=== PATIENT | male | born 1945 | race Caucasian/White ===

== ENCOUNTER 2024-08-18 21:17 | Emergency (ER) | payer MEDICARE, OTHER, SELFPAY ==
[2024-08-18 21:31] VITALS: BP 189/97; PULSE 66; RESP 18; TEMP 36.8; O2SAT 97; BMI 31.2
[2024-08-18 22:28] LABS: Add Manual Diff / Slide Review NO; Basophils Absolute Auto 0 /uL (0-100); Basophils Percent Auto 0.3 % (0-2); Eosinophils Absolute Auto 0 /uL (0-450); Eosinophils Percent Auto 0.1 % (2-4); Hematocrit 38.9 % (41-53); Hemoglobin 13.4 g/dL (13.5-17.5); Lymphocytes Absolute Auto 1000 /uL (1100-4500); Lymphocytes Percent Auto 10.5 % (25-40); Mean Corpuscular HGB Conc 34.5 % (30-36); Mean Corpuscular Hemoglobin 31.8 PG (26-34); Mean Corpuscular Volume 92.3 fL (80-100); Monocytes Absolute Auto 400 /uL (0-900); Neutrophils Absolute Auto 7700 /uL (1500-7000); Neutrophils Percent Auto 85.1 % (50-75); Platelet Count 166 X10^3/uL (150-400); Red Blood Cell Count 4.21 X10^6/uL (4.5-5.9); Red Cell Distribution Width 13.4 % (11.6-14.8); White Blood Cell Count 9.1 X10^3/uL (4.5-11.0)
[2024-08-18 22:31] LABS: Urine Volume 10mL (spun)
[2024-08-18 22:32] LABS: Bacteria Urine None Seen; Culture Indicated Urine Cult Not Indicated; RBC Urine 30-100/HPF (0-5/HPF); Squamous Epithelial Cell Urine None Seen (0-5/HPF); WBC Urine None Seen (0-5/HPF)
[2024-08-18 22:38] LABS: Alanine Aminotransferase 26 IU/L (<50); Albumin 4.7 g/dL (3.5-5.0); Albumin Globulin Ratio 1.6 (1.0-2.8); Alkaline Phosphatase 49 U/L (38-126); Aspartate Aminotransferase 35 IU/L (17-59); Bilirubin Total 0.6 mg/dL (0.2-1.3); Blood Urea Nitrogen 17 mg/dL (9-20); Calcium 9.6 mg/dL (8.4-10.2); Carbon Dioxide 24 mmol/L (22-32); Chloride 107 mmol/L (98-107); Estimated Glomerular Filt Rate 51 mL/min (>60); Globulin 2.9 g/dL (1.7-4.1); Glucose 127 mg/dL (70-99); HEMOLYSIS < 15 (0-50); Lipase 382 U/L (23-300); Potassium 4.9 mmol/L (3.4-5.1); Sodium 140 mmol/L (137-145); Total Protein 7.6 g/dL (6.3-8.2)
[2024-08-18 23:34] VITALS: PULSE 89; RESP 17; O2SAT 98
--- NOTE | 2024-08-18 23:52 | ED.ABDPAIN ---
HPI - Abdominal Pain General Chief Complaint: Abdominal Pain Stated Complaint: Abdominal Pain Time Seen by Provider: 08/18/24 23:41 Source: patient Mode of arrival: Ambulatory History of Present Illness HPI narrative: [age] year old gentleman history of CAD 2 stents, prediabetic, dyslipidemia, history of kidney stones, presents with left lower quadrant pain, radiating to left kidney, started earlier tonight. Denies nausea, vomiting, diarrhea, constipation, hematuria, or penile discharge, testicular pain, chest pain, shortness of breath, cough, runny nose, sore throat. Last had a bowel movement earlier today. Other than what is stated 14 point review of system is negative Related Data Previous Rx's Medication Instructions Recorded hydrocodone 5 mg-acetaminophen 325 1 tab PO Q6H PRN pain #20 tabs 08/19/24 mg tablet tamsulosin 0.4 mg capsule (Flomax) 0.4 mg PO DAILY #30 caps 08/19/24 Review of Systems Review of Systems ROS Unobtainable: All systems reviewed & are unremarkable except as noted in HPI and below Patient History Social History Smoking Status: Never smoker Smoking Status: Never smoker Exam Narrative Exam Narrative: GENERAL: [79] year old patient appears stated age. Well-developed patient, in mild distress. HEAD: Atraumatic. Normocephalic. EYES: Pupils equal round and reactive. Extraocular motions intact. No scleral icterus. No injection or drainage. ENT: Nose without bleeding, purulent drainage. Throat without erythema, tonsillar hypertrophy or exudate. Airway patent. NECK: Trachea midline. Non tender CARDIOVASCULAR: Regular rate and rhythm without murmurs, gallops, or rubs. RESPIRATORY: Clear to auscultation. Breath sounds equal bilaterally. No wheezes, rales, or rhonchi. GASTROINTESTINAL: Abdomen soft,LLQ TTP but no r/r/g EXTREMITIES: No edema or joint tenderness. BACK: Nontender without deformity or crepitance. No flank tenderness. NEURO: AOx3. SKIN: No rash or erythema of visible areas Initial Vital Signs Initial Vital Signs: Vital Signs Temperature 98.2 F 08/18/24 21:31 Pulse Rate 66 08/18/24 21:31 Respiratory Rate 18 08/18/24 21:31 Blood Pressure 189/97 H 08/18/24 21:31 Pulse Oximetry 97 08/18/24 21:31 Oxygen Delivery Method Room Air 08/18/24 21:31 Course Orders Ordered: ED Orders 08/18/24 22:04 Urine Microscopic Stat 08/18/24 22:15 EKG-12 Lead Stat 08/18/24 22:18 Complete Blood Count AUTO DIFF Stat Comprehensive Metabolic Panel Stat Lipase Stat 08/18/24 23:52 CT abdomen pelvis w con Stat Ondansetron HCl (Ondansetron 4 Mg/2 Ml Inj) 4 mg IV NOW PRN PRN Reason: Nausea And Vomiting Last Admin: 08/19/24 00:01 Dose: 4 mg Documented By: ELISEO Ondansetron HCl (Ondansetron 4 Mg Odt) 4 mg PO NOW PRN PRN Reason: Nausea And Vomiting Discontinued Medications Lactated Ringer's (Lactated Ringers) 1,000 mls @ 1,000 mls/hr IV BOLUS ONE Stop: 08/19/24 00:54 Last Infusion: 08/19/24 01:10 Dose: Infused Documented By: Admin: 08/19/24 00:00 Dose: 1,000 mls/hr Documented By: ELISEO Morphine Sulfate (Morphine 4 Mg/Ml Inj) 4 mg IV NOW ONE Stop: 08/18/24 23:56 Last Admin: 08/19/24 00:00 Dose: 4 mg Documented By: ELISEO Vital Signs Vital signs: Vital Signs - 8 hr 08/18/24 21:31 08/18/24 23:34 08/19/24 00:00 Temperature 98.2 F Pulse Rate 66 89 85 Respiratory Rate 18 17 20 Blood Pressure 189/97 H Pulse Oximetry 97 98 97 Oxygen Delivery Method Room Air Room Air Room Air 08/19/24 00:08 08/19/24 00:08 08/19/24 00:09 Temperature Pulse Rate 86 Respiratory Rate 24 Blood Pressure 187/87 H 173/84 H Pulse Oximetry 97 Oxygen Delivery Method Room Air 08/19/24 00:09 08/19/24 00:30 08/19/24 00:30 Temperature Pulse Rate 84 86 Respiratory Rate 19 15 Blood Pressure 159/75 H Pulse Oximetry 96 93 Oxygen Delivery Method Room Air Room Air 08/19/24 01:00 08/19/24 01:00 Temperature Pulse Rate 85 Respiratory Rate 17 Blood Pressure 152/70 H Pulse Oximetry 95 Oxygen Delivery Method Room Air MDM - Abdominal Pain Lab Data 08/18/24 22:18 08/18/24 22:18 Labs: Lab Results 08/18/24 08/18/24 Range/Units 22:04 22:18 WBC 9.1 (4.5-11.0) X10^3/uL RBC 4.21 L (4.5-5.9) X10^6/uL Hgb 13.4 L (13.5-17.5) g/dL Hct 38.9 L (41-53) % MCV 92.3 (80-100) fL MCH 31.8 (26-34) PG MCHC 34.5 (30-36) % RDW 13.4 (11.6-14.8) % Plt Count 166 (150-400) X10^3/uL Neut % (Auto) 85.1 H (50-75) % Lymph % (Auto) 10.5 L (25-40) % [place] % (Auto) 4.0 (3-14) % Eos % (Auto) 0.1 L (2-4) % Baso % (Auto) 0.3 (0-2) % Neut # (Auto) 7700 H (2264-3649) /uL Lymph # (Auto) 1000 L (0211-9343) /uL [place] # (Auto) 400 (0-900) /uL Eos # (Auto) 0 (0-450) /uL Baso # (Auto) 0 (0-100) /uL Sodium 140 (137-145) mmol/L Potassium 4.9 (3.4-5.1) mmol/L Chloride 107 (98-107) mmol/L Carbon Dioxide 24 (22-32) mmol/L BUN 17 (9-20) mg/dL Creatinine 1.42 H (0.66-1.25) mg/dL Estimated GFR 51 L (>60) mL/min BUN/Creatinine Ratio 12.0 (6-22) Glucose 127 H (70-99) mg/dL Calcium 9.6 (8.4-10.2) mg/dL Total Bilirubin 0.6 (0.2-1.3) mg/dL AST 35 (17-59) IU/L ALT 26 (<50) IU/L Alkaline Phosphatase 49 (38-126) U/L Total Protein 7.6 (6.3-8.2) g/dL Albumin 4.7 (3.5-5.0) g/dL Globulin 2.9 (1.7-4.1) g/dL Albumin/Globulin Ratio 1.6 (1.0-2.8) Lipase 382 H (23-300) U/L Urine RBC 30-100/hpf H (0-5/HPF) Urine WBC None seen (0-5/HPF) Ur Squamous Epith Cells None seen (0-5/HPF) Urine Bacteria None seen (None) Ur Culture Indicated? Cult not indicated Vol Urine Centrifuged 10ml (spun) Point of care testing: Urine Dip Bedside Urine Glucose Negative Bedside Urine Bilirubin - Negative Bedside Urine Ketone - Negative Urine Specific [place] 1.030 Bedside Urine Occult Blood +++ Bedside Urine pH 5.5 Bedside Urine Protein +/- 15 Bedside Urine Urobilinogen - Negative Bedside Urine Nitrite - Negative Bedside Urine Leukocytes - Negative Esterase Imaging Data CT scan - abdomen/pelvis: Radiologist's Impression: [address] [address] [address] Scan Report Signed Patient: Srinivasa Lopez MR#: [id number] : 1945 Acct:[id number] Age/Sex: 79 / M Date of Service: 08/18/24 Loc: ED Accession Number: [id number] Procedure: CT abdomen pelvis w con Ordering Provider: Srinivasa Romero D.O. PROCEDURE: CT ABDOMEN PELVIS W CON INDICATIONS: LLQ pain TECHNIQUE: After the administration of intravenous contrast, axial sections acquired from the lung bases to the pubic symphysis. Coronal and sagittal reformats were performed. For radiation dose reduction, the following was used: automated exposure control, adjustment of mA and/or kV according to patient size. COMPARISON: None. FINDINGS: Image quality: Diagnostic. Lower Chest: No significant findings. ABDOMEN: Liver: No solid mass. Gallbladder: No radiopaque gallstones or wall thickening. Biliary ducts: No biliary dilation. Pancreas: No ductal dilation. Spleen: Size is within normal limits. Small splenule. Adrenal Glands: No adrenal nodules. Kidneys and Ureters: Obstructing calculus in the distal left ureter measuring 0.4 cm, (3/). Left hydroureter. [id number] left hydronephrosis. No solid renal mass. No additional kidney stones seen. Stomach and Bowel: Normal colonic caliber, without significant wall thickening. Diverticulosis. Normal appendix. Peritoneum: No abnormal intraperitoneal fluid. No free air. Ventral Wall: No significant ventral hernia. Abdominal Nodes: No retroperitoneal or mesenteric adenopathy by size criteria. Vessels: Aorta and inferior vena cava are normal in size. PELVIS: Pelvic Organs: Unremarkable. Bladder: No bladder wall thickening. No stone. Pelvic Nodes: No enlarged lymph nodes. Miscellaneous: No inguinal hernias are seen. Bones: No aggressive osseous abnormality. Right hip arthroplasty. Beam hardening artifact. DDD. IMPRESSION: 1. Obstructing left kidney stone in the distal left ureter measuring 0.4 cm. [id number] hydroureteronephrosis. 2. No additional kidney stones seen. 3. Normal appendix. No diverticulitis. Dictated by: Nathanael Lozada M.D. on 08/19/2024 at 1:59 Approved by: Nathanael Lozada M.D. on 08/19/2024 at 2:08 MDM Narrative Medical decision making narrative: All lab work vital signs nurse triage note medication list all reviewed. Patient given lactated ringer Zofran morphine and Flomax here. Patient will be discharged on Flomax strainer and hydrocodone and to follow up with urologist and call the office for an appointment next week and to keep hydrated. Differential diagnosis includes kidney stone kidney infection diverticulitis UTI. Discharge Plan Departure Patient Disposition: Home Clinical Impression: Calculus of kidney Instructions: DI for Kidney Stones Activity Restrictions/Additional Instructions: Return with new or worsening symptoms. Take your medicines directed. Call urology office for appointment next week in [place]. Prescriptions: New hydrocodone-acetaminophen 5-325 mg tablet 1 tab PO Q6H PRN (Reason: pain) Qty: 20 0RF tamsulosin [Flomax] 0.4 mg capsule 0.4 mg PO DAILY Qty: 30 0RF Stand Alone Forms: Patient Portal/API/Survey
[2024-08-19] VITALS (8 sets, daily range): BP systolic 147–187; BP diastolic 70–87; PULSE 81–86; RESP 13–24; O2SAT 93–98
[2024-08-19] MEDS: LACTATED RINGERS 1,000 ML 1000 ML IV
[2024-08-19] MEDS: MORPHINE 4 MG/ML INJ IV
[2024-08-19] MEDS: ONDANSETRON 4 MG/2 ML INJ IV (00:01)
--- NOTE | 2024-08-19 00:12 | PC.NURSE ---
Pt to imaging via ED stretcher with qc lab technician.
[2024-08-19] MEDS: TAMSULOSIN 0.4 MG CAPSULE PO (02:29)
[2024-08-19] MEDS: HYDROCODONE/ACET 5/325 PREPACK 1 BOTTLE MISC (02:29)
== END 2024-08-19 02:43 | disposition home or self-care (01) ==
PROVIDERS: Internal Medicine; Emergency Provider Family Medicine
DX: N20.0 Calculus of kidney (principal); I25.10 Atherosclerotic heart disease of native coronary artery without angina pectoris; Z87.442 Personal history of urinary calculi; Z95.5 Presence of coronary angioplasty implant and graft
CPT/HCPCS: 36415; 74177; 80053; 81003; 81015; 83690; 85025; 96361; 96374; 96375; 99284; J2270; J2405; Q9967